=== PATIENT | male | born 1970 | race Caucasian/White ===

== ENCOUNTER 2018-01-10 11:46 | Inpatient (IN) | payer MEDICAID ==
--- NOTE | 2018-01-10 11:57 | CPEKG ---
Heart Rate: 115 RR Interval: 522 P-R Interval: 148 QRSD Interval: 100 QT Interval: 320 QTC Interval: 443 P [place]: 84 QRS [place]: 49 T Wave [place]: 251 EKG Severity - ABNORMAL ECG - EKG Impression: SINUS TACHYCARDIA EKG Impression: BORDERLINE INFERIOR Q WAVES EKG Impression: NONSPECIFIC T ABNORMALITIES, DIFFUSE LEADS Electronically Signed By: Mauri Wallace 10-Jan-2018 14:09:33
[2018-01-10] MEDS ORDERED: NS 1,000 ML IV ONE ×3 (12:09→12:19)
--- NOTE | 2018-01-10 12:09 | EDPHY ---
H & P Stated Complaint: nausea vomiting Time Seen by Provider: 01/10/18 12:08 - Personal History Current Tetanus/Diphtheria Vaccine: Yes Current Tetanus Diphtheria and Acellular Pertussis (TDAP): Yes - Medical/Surgical History Hx Asthma: No Hx Chronic Respiratory Disease: No Hx Diabetes: No Hx Cardiac Disease: No Hx Renal Disease: No Hx Cirrhosis: No Hx Alcoholism: No Hx HIV/AIDS: No Hx Splenectomy or Spleen Trauma: No Other PMH: pmh: depression, - Social History Smoking Status: Never smoked Constitutional: Initial Vital Signs Temperature (C) 36.6 C 01/10/18 12:05 Heart Rate 120 H 01/10/18 12:05 Respiratory Rate 18 01/10/18 12:05 Blood Pressure 96/68 L 01/10/18 12:05 O2 Sat (%) 97 01/10/18 12:05 O2 Delivery Mode Nasal Cannula O2 (L/minute) 2 Allergies/Adverse Reactions: No Known Allergies Allergy (Unverified 01/10/18 12:22) Home Medications: Medication Instructions Recorded Acetaminophen/ASA/Caffeine 1 each PO DAILY PRN 01/10/18 [Excedrin Tablet (*)] Ascorbic Acid [Vitamin C 500 mg 500 mg PO DAILY 01/10/18 (*)] Carboxymethylcellulose 1% [Refresh 1 drop EACHEYE BID PRN 01/10/18 Celluvisc (*)] Multivitamins [Multivitamin (*)] 2 each PO DAILY 01/10/18 Sertraline HCl [Zoloft 50mg (*)] 50 mg PO DAILY 01/10/18 Medical Decision Making ED Course/Re-evaluation: CHIEF COMPLAINT: Nausea/vomiting. HISTORY OF PRESENT ILLNESS: This patient is a 47 year old male arriving via EMS for evaluation of persistent vomiting and weakness. Tuesday evening, he has chicken [employer] for dinner. The following evening, three days ago, he began vomiting. The emesis was reddish-tinged, but this was initially attributed to the pink color of the watson from dinner the night before. Later that night, the patient fainted , but was able to get up quickly following this event. Since then, he has continued to vomit and feel weak. His at bedside states he has also had frequent episodes of dark, tarry stool. The patient states he does not feel cold , but has not been able to stop shaking. He denies fever, chest pain, or abdominal pain. He denies any history of similar symptoms before. REVIEW OF SYSTEMS: A 10 point review of systems was performed and is negative with the exception of the elements mentioned in the history of present illness. PHYSICAL EXAM: HR, BP, O2 Sat, RR. Temp noted General Appearance: Alert, pale. Head: Atraumatic without scalp tenderness or obvious injury Eyes: Pale conjunctiva. Pupils equal, round, reactive to light and accommodation , EOMI, no trauma, no injection. Ears: Clear bilaterally, no perforation, normal landmarks Nose: Atraumatic, no rhinorrhea, clear. Throat: There is no erythema or exudates, no lesions, normal tonsils, mucus membranes moist. Neck: Supple, 2+ carotid upstroke, nontender, no lymphadenopathy. Respiratory: No retractions, no distress, no wheezes, and no accessory muscle use. Lungs are clear to auscultation bilaterally. Cardiovascular: Regular rate and rhythm, no murmurs, rubs, or gallops. Bilateral carotid, radial, dorsalis pedis, and posterior tibial pulses intact. Good capillary refill all extremities. Gastrointestinal: Abdomen is soft, nontender, non-distended, no masses, no rebound, no guarding, no peritoneal signs. Musculoskeletal: Normal active ROM of all extremities, atraumatic. Neurological: Alert, appropriate, and interactive. The patient has normal DTRs and non-focal cranial nerves, motor, sensory, and cerebellar exam. Skin: Pale. Some loss of palmar creases. No rashes, good turgor, no nodules on palpation. Past medical history: Depression. Past surgical history: Noncontributory. Family history: Noncontributory. Social history: . at bedside. [place]. DIAGNOSTICS/PROCEDURES/CRITICAL CARE TIME: Critical care time spent by me, Dr. Wallace, exclusively with this patient was 30 minutes, exclusive of PA time and exclusive of procedures. The organ system at risk was cardiovalvular, GI and I gave blood products, consulted with GI, initiated TXA protocol, and transferred the patient to ICU to prevent worsening of the patients condition. DIFFERENTIAL DIAGNOSIS: The differential diagnosis for the patient's upper GI bleeding included but was not limited to ulcer disease, gastritis, Bianca-Hammond tear, and esophageal varices. MEDICAL DECISION MAKING: Healthy 47 y/o male presents with weakness and persistent vomiting. He is very pale on exam, diaphoretic, and shaking. I-stat shows Hemoglobin/Hematocrit low at 7.5/22. Patient has likely upper GI bleed. Plan for type and cross. Plan for GI consult. Plan for labs including CBC, chemistries, liver/lipase. 12:30 Paged GI. Plan to start IV Protonix drip, blood products including 2 packets of red cells, 2 FFP, and 1 platelet. Plan to administer TXA per protocol. 12:[address] Fofana, metal fabricating supervisor. He will scope the patient. Plan to administer 250mg Erythromycin IV for motility as recommended by Dr. Fofana. 13:01 Dr. Fofana accepts admission to ICU for likely upper GI bleed. - Data Points Laboratory Results: Laboratory Results 01/10/18 12:05 01/10/18 11:48 01/10/18 01/10/18 01/10/18 12:10 12:05 11:48 WBC 13.29 10^3/uL H 10^3/uL (3.80-9.50) RBC 2.15 10^6/uL L 10^6/uL (4.40-6.38) Hgb 6.8 g/dL L g/dL (13.7-17.5) Hct 19.8 % L % (40.0-51.0) MCV 92.1 fL fL (81.5-99.8) MCH 31.6 pg pg (27.9-34.1) MCHC 34.3 g/dL g/dL (32.4-36.7) RDW 12.3 % % (11.5-15.2) Plt Count 282 10^3/uL 10^3/uL (150-400) MPV 9.3 fL fL (8.7-11.7) Neut % (Auto) 88.5 % H % (39.3-74.2) Lymph % (Auto) 6.1 % L % (15.0-45.0) [place] % (Auto) 4.5 % % (4.5-13.0) Eos % (Auto) 0.0 % L % (0.6-7.6) Baso % (Auto) 0.2 % L % (0.3-1.7) Nucleat RBC Rel Count 0.2 % % (0.0-0.2) Absolute Neuts (auto) 11.77 10^3/uL H 10^3/uL (1.70-6.50) Absolute Lymphs (auto) 0.81 10^3/uL L 10^3/uL (1.00-3.00) Absolute Monos (auto) 0.60 10^3/uL 10^3/uL (0.30-0.80) Absolute Eos (auto) 0.00 10^3/uL L 10^3/uL (0.03-0.40) Absolute Basos (auto) 0.02 10^3/uL 10^3/uL (0.02-0.10) Absolute Nucleated RBC 0.03 10^3/uL H 10^3/uL (0-0.01) Immature Gran % 0.7 % % (0.0-1.1) Immature Gran # 0.09 10^3/uL 10^3/uL (0.00-0.10) Platelet Estimate INCREASED H (ADEQ) Polychromasia 1+ H Microcytic Cells 1+ H Smear Review By Pending PT 15.9 SEC H SEC (12.0-15.0) INR 1.25 H (0.83-1.16) APTT 21.9 SEC L SEC (23.0-38.0) Sodium Potassium Chloride Carbon Dioxide Anion Gap BUN Creatinine Estimated GFR Glucose Calcium Total Bilirubin Conjugated Bilirubin Unconjugated Bilirubin AST ALT Alkaline Phosphatase Total Protein Albumin Lipase Patient ABO/Rh O POSITIVE Antibody Screen NEGATIVE Crossmatch IS Only See Detail Bld Prod Verbal Order YES 01/10/18 01/10/18 11:48 11:48 WBC 13.55 10^3/uL H 10^3/uL (3.80-9.50) RBC 2.30 10^6/uL L 10^6/uL (4.40-6.38) Hgb 7.4 g/dL L g/dL (13.7-17.5) Hct 21.3 % L % (40.0-51.0) MCV 92.6 fL fL (81.5-99.8) MCH 32.2 pg pg (27.9-34.1) MCHC 34.7 g/dL g/dL (32.4-36.7) RDW 12.3 % % (11.5-15.2) Plt Count 289 10^3/uL 10^3/uL (150-400) MPV 9.3 fL fL (8.7-11.7) Neut % (Auto) 87.5 % H % (39.3-74.2) Lymph % (Auto) 7.1 % L % (15.0-45.0) [place] % (Auto) 4.8 % % (4.5-13.0) Eos % (Auto) 0.0 % L % (0.6-7.6) Baso % (Auto) 0.1 % L % (0.3-1.7) Nucleat RBC Rel Count 0.3 % H % (0.0-0.2) Absolute Neuts (auto) 11.85 10^3/uL H 10^3/uL (1.70-6.50) Absolute Lymphs (auto) 0.96 10^3/uL L 10^3/uL (1.00-3.00) Absolute Monos (auto) 0.65 10^3/uL 10^3/uL (0.30-0.80) Absolute Eos (auto) 0.00 10^3/uL L 10^3/uL (0.03-0.40) Absolute Basos (auto) 0.02 10^3/uL 10^3/uL (0.02-0.10) Absolute Nucleated RBC 0.04 10^3/uL H 10^3/uL (0-0.01) Immature Gran % 0.5 % % (0.0-1.1) Immature Gran # 0.07 10^3/uL 10^3/uL (0.00-0.10) Platelet Estimate Polychromasia Microcytic Cells Smear Review By PT INR APTT Sodium 138 mEq/L mEq/L (135-145) Potassium 3.6 mEq/L mEq/L (3.5-5.2) Chloride 103 mEq/L mEq/L (97-110) Carbon Dioxide 15 mEq/l L mEq/l (22-31) Anion Gap 20 mEq/L H mEq/L (8-16) BUN 34 mg/dL H mg/dL (7-23) Creatinine 1.0 mg/dL mg/dL (0.7-1.3) Estimated GFR > 60 Glucose 221 mg/dL H mg/dL (70-100) Calcium 8.9 mg/dL mg/dL (8.5-10.4) Total Bilirubin 0.2 mg/dL mg/dL (0.1-1.4) Conjugated Bilirubin 0.2 mg/dL mg/dL (0.0-0.5) Unconjugated Bilirubin 0.0 mg/dL mg/dL (0.0-1.1) AST 32 IU/L IU/L (17-59) ALT 45 IU/L IU/L (21-72) Alkaline Phosphatase 43 IU/L IU/L (38-126) Total Protein 5.9 g/dL L g/dL (6.3-8.2) Albumin 3.6 g/dL g/dL (3.5-5.0) Lipase 71 IU/L IU/L (23-300) Patient ABO/Rh Antibody Screen Crossmatch IS Only Bld Prod Verbal Order Medications Given: Tranexamic Acid 1,000 mg/ (Sodium Chloride) 510 mls @ 63.75 mls/hr IV ONCE ONE Stop: 01/10/18 20:31 Last Admin: 01/10/18 13:01 Dose: 510 mls Erythromycin Lactobionate 250 (mg/ Sodium Chloride) 105 mls @ 220 mls/hr IV Q6HRS MIN PRN Reason: Protocol Stop: 02/09/18 17:59 Last Admin: 01/10/18 13:25 Dose: 105 mls Discontinued Medications Sodium Chloride (Ns) 1,000 mls @ 0 mls/hr IV ONCE ONE PRN Reason: Wide Open Stop: 01/10/18 12:18 Last Admin: 01/10/18 12:00 Dose: 1,000 mls Sodium Chloride (Ns) 1,000 mls @ 0 mls/hr IV EDNOW ONE; Wide Open PRN Reason: Protocol Stop: 01/10/18 12:10 Last Admin: 01/10/18 12:15 Dose: 1,000 mls Ondansetron HCl (Zofran) 4 mg IVP EDNOW ONE Stop: 01/10/18 12:18 Last Admin: 01/10/18 12:23 Dose: 4 mg Pantoprazole Sodium (Protonix) 80 mg IVP EDNOW ONE Stop: 01/10/18 12:31 Last Admin: 01/10/18 12:56 Dose: 80 mg Promethazine HCl (Phenergan) 12.5 mg IVP ONCE ONE Stop: 01/10/18 13:07 Last Admin: 01/10/18 13:07 Dose: 12.5 mg Departure - Departure Disposition: [facility] Inpatient Acute Clinical Impression: Upper GI bleed Condition: Serious Referrals: Patient,NotPresent [Primary Care Provider] - As per Instructions Report Scribed for: Mauri Wallace Report Scribed by: Alanis Plascencia Date of Report: 01/10/18 Time of Report: 15:21
[2018-01-10] MEDS ORDERED: ONDANSETRON 4 MG/2 ML VIAL IVP ONE (12:17)
[2018-01-10 12:24] LABS: PLATELET COUNT 289 10^3/uL (150-400)
[2018-01-10] MEDS ORDERED: PANTOPRAZOLE SODIUM 40 MG VIAL IVP ONE (12:30)
[2018-01-10] MEDS ORDERED: TRANEXAMIC ACID 1,000 MG in NS 500 ML IV ONE (12:32)
[2018-01-10] MEDS ORDERED: TRANEXAMIC ACID 1,000 MG in NS 100 ML IV ONE (12:32)
[2018-01-10 12:40] LABS: INR 1.25 (0.83-1.16); PROTIME(PATIENT) 15.9 SEC (12.0-15.0)
[2018-01-10 12:41] LABS: PLATELET COUNT 282 10^3/uL (150-400)
[2018-01-10] MEDS ORDERED: PANTOPRAZOLE SODIUM 40 MG VIAL ONE (12:53)
[2018-01-10] MEDS ORDERED: PROMETHAZINE HCL 25 MG/ML INJ ONE (13:05)
[2018-01-10] MEDS ORDERED: PROMETHAZINE HCL 25 MG/ML INJ IVP ONE (13:06)
--- NOTE | 2018-01-10 13:30 | PDANEPAE ---
ANE History of Present Illness GIB ANE Past Medical History - Cardiovascular History Hx Hypertension: No Hx Arrhythmias: No Hx Chest Pain: No Hx Coronary Artery / Peripheral Vascular Disease: No Hx CHF / Valvular Disease: No Hx Palpitations: No - Pulmonary History Hx COPD: No Hx Asthma/Reactive Airway Disease: No Hx Recent Upper Respiratory Infection: No Hx Oxygen in Use at Home: No Hx Sleep Apnea: No - Endocrine History Hx Diabetes: No Hypothyroid: No Hyperthyroid: No Obesity: no - Renal History Hx Renal Disorders: No - Liver History Hx Hepatic Disorders: No - GI History Hx Gastrointestinal Disorders: Yes ANE Review of Systems Review of Systems: - Exercise capacity Exercise capacity: >=4 METS - Systems Gastrointestinal: Reports: vomitting ANE Patient History - Allergies Allergies/Adverse Reactions: No Known Allergies Allergy (Unverified 01/10/18 12:22) - Home Medications Home Medications: Acetaminophen/ASA/Caffeine [Excedrin Tablet (*)] 1 each PO DAILY PRN 01/10/18 [ Last Taken Unknown] Ascorbic Acid [Vitamin C 500 mg (*)] 500 mg PO DAILY 01/10/18 [Last Taken Unknown] Carboxymethylcellulose 1% [Refresh Celluvisc (*)] 1 drop EACHEYE BID PRN [Last Taken Unknown] Multivitamins [Multivitamin (*)] 2 each PO DAILY 01/10/18 [Last Taken Unknown] Sertraline HCl [Zoloft 50mg (*)] 50 mg PO DAILY 01/10/18 [Last Taken 3 Days Ago ~01/07/18] - NPO status NPO Status: no food or drink >8 hours - Anes Hx Anes Hx: post operative nausea, post operative nausea and vomiting - Smoking Hx Smoking Status: Never smoked - Alcohol Use Alcohol Use: Heavy (2-3/night) - Family Anes Hx Family Anes Hx: none ANE Labs/Vital Signs - Labs Result Diagrams: 01/10/18 12:05 01/10/18 11:48 - Vital Signs Vital Signs: reviewed preoperatively; see RN documention for details Blood Pressure: 128/57 Heart Rate: 102 Respiratory Rate: 18 O2 Sat (%): 98 Height: 190.5 cm Weight: 79.379 kg ANE Physical Exam - Airway Neck exam: FROM Mallampati Score: Class 2 Mouth exam: normal dental/mouth exam - Pulmonary Pulmonary: no respiratory distress - Cardiovascular Cardiovascular: regular rate and rhythym - ASA Status ASA Status: III, E ANE Anesthesia Plan Anesthesia Plan: general endotracheal anesthesia
[2018-01-10] MEDS ORDERED: fentaNYL 100 MCG/2 ML INJ ONE (13:34)
[2018-01-10] MEDS ORDERED: PROPOFOL 200 MG/20 ML VIAL ONE (13:34)
[2018-01-10] MEDS ORDERED: ROCURONIUM 50 MG/5 ML VIAL ONE (13:34)
[2018-01-10] MEDS ORDERED: LIDOCAINE 2% 5 ML SDV ONE (13:34)
[2018-01-10] MEDS ORDERED: NALOXONE HCL 0.4 MG/ML INJ IVP PRN (14:45)
[2018-01-10] MEDS ORDERED: fentaNYL 100 MCG/2 ML INJ IVP PRN (14:45)
[2018-01-10] MEDS ORDERED: ONDANSETRON 4 MG/2 ML VIAL IVP PRN (14:45)
--- NOTE | 2018-01-10 14:45 | POSTANESTH ---
Post Anesthetic Evaluation Cardiovascular Status: Similar to Pre-Op Cond Respiratory Status: Normal, Stable Level of Consciousness/Mental Status: Can Participate in Eval Pain Control: Adequate, Prn Tx Ordered Nausea/Vomiting Control: Adequate, Prn Tx Ordered Complications Possibly Related to Anesthesia: None Noted
--- NOTE | 2018-01-10 14:54 | GCON ---
[f rep st] CONSULTATION DATE OF CONSULTATION: 01/10/2018 REFERRING PHYSICIAN: Nito Bolton MD REASON FOR CONSULTATION: Upper GI bleed. CHIEF COMPLAINT: Hematemesis. HISTORY OF PRESENT ILLNESS: The patient is a 47-year-old male with history of nonsteroidal anti-inflammatory use, alcohol use, who presents to [facility] with complaints of hematemesis. The patient was in normal state of health until approximately 3 days ago after eating, when he started to have multiple episodes of hematemesis, where he was throwing up approximately 10 times a day. The patient is lethargic, thus much of history is obtained through his . He also started to develop melanotic bowel movements. He did have a syncopal episode. He denies any exacerbating or alleviating factors to his symptoms. He does take at least 2-3 Excedrin a day, but stopped several days ago. He also drinks about 2-3 alcoholic beverages a night. He denies ever being told that he has liver dysfunction. He denies any chest pain, shortness of breath, cough, dysphagia, or fevers. I am being asked by Dr. Bolton to evaluate the patient in consultation. PAST MEDICAL HISTORY: 1. Headaches. 2. Depression. PAST SURGICAL HISTORY: None. ALLERGIES: NKDA. MEDICATIONS: Zoloft. SOCIAL HISTORY: Positive alcohol. No cigarette use. FAMILY HISTORY: No history of stomach cancer. REVIEW OF SYSTEMS: A 14-point comprehensive review of systems was asked. Pertinent positives and negatives per HPI. PHYSICAL EXAM: VITAL SIGNS: Blood pressure 128/57, heart rate 107, O2 sat 98% on room air, respirations 16. GENERAL: Awake, lethargic. HEENT: Anicteric. Moist mucosa. NECK: No JVD. CARDIOVASCULAR: Tachycardic. Positive S1, S2. No murmurs appreciated. LUNGS: Clear to auscultation bilateral without wheezes, rales or rhonchi. ABDOMEN: Soft, nontender, nondistended. Positive bowel sounds. No guarding. No rebound. EXTREMITIES: No clubbing, cyanosis or edema. NEUROLOGIC: 2 through 12 grossly intact. SKIN: No rash. Nonicteric. PSYCH: Normal affect. MUSCULOSKELETAL: No obvious joint deformities. LYMPH: No lymphadenopathy. LABORATORY DATA: Blood work: WBC 13.29, hemoglobin 6.8, hematocrit 19.8, platelets 282. INR 1.25. Sodium 138, potassium 3.6, chloride 103, bicarb 15, BUN 34, creatinine 1.0, AST 32, ALT 45, alk phos 43, albumin 3.6, lipase 71. ASSESSMENT/PLAN: 1. Gastrointestinal bleed-upper. He does have significant nonsteroidal anti- inflammatory as well as alcohol use. Post hemorrhagic anemia. Etiology? Bianca Hammond tear versus peptic ulcer disease versus other? . At this time, I recommend to give a protonix infusion and monitor H and H. Will transfuse as needed, and we will need ICU care. We will also recommend to proceed with upper endoscopy to delineate the cause of symptoms and possibly control the bleeding. Will give 250mg or erythromycin x 1 to empty the stomach. The risks, benefits , and alternatives of the procedure were discussed in great detail with the patient, as well as the , who was present. Risks of infection, bleeding, perforation, and sedation were discussed. Due to his significant acute and emergent nature of this procedure due to hematemesis, there is increased risk of sedation; Will need anesthesiology support and recommend general anesthesia for airway protection. 2. History of depression. Thank you very much for this consultation. /[id number]/MODL MTDD
--- NOTE | 2018-01-10 15:42 | GIREPORT ---
[facility] Surgical Services - Endoscopy Department Patient Name: Khurram Warren Procedure Date: 01/10/2018 1:51 PM Patient Type: Emergency Department Attending MD/ ER Physician: Hector Fofana MD Procedure: Upper GI endoscopy Indications: Acute post hemorrhagic anemia, Hematemesis, Melena Patient Profile: 49 year old male presents for evaluation of hematemesis/melena. Providers: Hector Fofana MD Medicines: Monitored Anesthesia Care Complications: No immediate complications. Description of Procedure: After obtaining informed consent, the endoscope was passed under direct vision. Throughout the procedure, the patient's blood pressure, pulse, and oxygen saturations were monitored continuously. The Endoscope was intro duced through the mouth, and advanced to the second part of duodenum. The Endoscope was introduced through the mouth, and advanced to the second part of duodenum. The upper GI endoscopy was accomplished without difficulty . The patient tolerated the procedure well. Findings: The examined esophagus was normal. A medium-sized hiatal hernia was present. Three superficial gastric ulcers with no stigmata of bleeding were foun d in the gastric body and in the gastric antrum. The largest lesion was 4 mm in largest dimension. No blood was seen during the whole examination. The examined duodenum was normal. Estimated Blood Loss: Estimated blood loss: none. Post Op Diagnosis: - Normal esophagus. - Medium-sized hiatal hernia. - Gastric ulcers with no stigmata of bleeding. - NO blood seen throughout the examined stomach. - Normal examined duodenum. - No specimens collected. - Etiology? Ulcers were superficial but no other cause found. Healed ul cer versus Dielaufoys versus other? Recommend PPI infusion as well as monit or H/H. No NSAIDs. Will follow. Recommendation: - Return patient to [facility] for ongoing care. - Continue PPI infusion - Monitor H/H - NPO for now. - Thank you for allowing me to participate in the care of your patient. Attending Participation: I personally performed the entire procedure. Hector Fofana MD Hector Fofana MD 01/10/2018 3:42:06 PM This report has been signed electronicallyHector Fofana MD Number of Addenda: 0 Note Initiated On: 01/10/2018 1:51 PM [email or web address]
--- NOTE | 2018-01-10 15:53 | ASMTCMCOM ---
CM Note CM Note Notes: Patient admitted after having N/V and UGIB. He ahs a Hx of Headaches-daily use of Excedrin, Depression. Patient had an endoscopy today. Patient lives with his . CM not anticipating that patient will have any discharge needs. Date Signed: 01/10/2018 03:52 PM Electronically Signed By:Cherelle Scruggs LCSW
[2018-01-10] MEDS: D5W LR 1,000 ML IV SCH (16:33)
[2018-01-10] MEDS: PANTOPRAZOLE SODIUM 40 MG VIAL IVP SCH ×2 (17:58→22:03)
[2018-01-10] MEDS ORDERED: ERYTHROMYCIN LACTOBIONATE 250 MG in NS 100 ML IV SCH (18:00)
[2018-01-10] MEDS ORDERED: PROMETHAZINE HCL 25 MG/ML INJ IVP PRN (19:55)
[2018-01-10] MEDS ORDERED: NS W/ 20 KCl/L 1,000 ML IV SCH (20:00)
[2018-01-10] MEDS ORDERED: LORazepam 2 MG/ML INJ IVP PRN (20:03)
[2018-01-10 20:52] LABS: PLATELET COUNT 172 10^3/uL (150-400)
--- NOTE | 2018-01-10 21:16 | GHP ---
[f rep st] HISTORY AND PHYSICAL DATE OF ADMISSION: 01/10/2018 CHIEF COMPLAINT: Coffee-ground emesis and melena. HISTORY OF PRESENT ILLNESS: The patient is a pleasant 47-year-old gentleman with a past medical hist ory of depression, who had been feeling ill for the past 3-4 days, with complaints of nausea with stalin k-appearing emesis, and this morning developing significant amount of melena. EMS was called to his house. He actually developed episodes of loss of consciousness this morning and also when EMS was tr anu to get him up onto a gurney. When he got to the hospital, his initial hemoglobin was 7.4. This on repeat dropped to 6.8, and he was given 2 units of blood, which did improve the hemoglobin to 8.[address] Fofana with Gastroenterology was consulted, and took the patient for endoscopy. On endoscopy, t here were 3 ulcers noted within the stomach, but none of which appeared to be bleeding. Esophagus wa s documented as normal. No tears were noted. He has taken Excedrin, which has aspirin in it, for pa in relief, but he has not taken anything over the past 2-3 days. He does not have any history of any regular NSAID use. No history of any liver problems. He has 1 or 2 beers in the evening time. PAST MEDICAL HISTORY: Depression. PAST SURGICAL HISTORY: None. MEDICATIONS: Sertraline 50 mg daily. ALLERGIES: No known drug allergies. FAMILY HISTORY: Mother at the age of 51 secondary to breast cancer. Dad at 61 from a myoc ardial infarction. SOCIAL HISTORY: The patient is currently . He has 2 children. He does not smoke. He has 1- 2 beers daily. No regular NSAID use. The patient is a full code status. REVIEW OF SYSTEMS: CONSTITUTIONAL: Positive for chills. ENT: No recent upper respiratory-like ill nesses. CARDIOVASCULAR: No complaints of chest pains or palpitations. Positive for syncopal episod es earlier today. RESPIRATORY: No complaints of cough or shortness of breath. GI: No focal abdomi nal pains. Positive, though, for nausea with dark emesis and melena. : No report of any difficul ty with urination. NEUROLOGIC: No complaints of headaches or focal weakness. HEMATOLOGIC: No hist ory of any deep vein thrombosis or pulmonary embolism. No bleeding disorders. PSYCHIATRIC: No hist ory of anxiety. Positive for depression. ENDOCRINE: No history of diabetes or thyroid abnormality. SKIN: No new skin rashes. MUSCULOSKELETAL: No focal joint pains. PHYSICAL EXAMINATION: VITAL SIGNS: Temperature 36.9, blood pressure 126/80, heart rate 76, respirat ions 14, saturating 94% on room air. GENERAL: Patient is seen after his endoscopy today, awake, mehdi rt, conversant, in no acute distress. He does not appear pale, as noted previously in the ER. HEENT : Extraocular movements appear intact. No scleral icterus is noted. Mucous membranes dry. NECK: Supple. No thyroid enlargement noted. CHEST: Clear on auscultation with normal respiratory effort. HEART: Regular rate and rhythm. No murmurs. ABDOMEN: Soft, nontender, nondistended. : No Fo deana catheter in place. EXTREMITIES: No significant pitting edema. NEUROLOGIC: Cranial nerves 2-12 are intact, and strength 5/5 in extremities. LABS: White blood cell count is 13. Hemoglobin most recently is at 8.6. That is after receiving 2 units of blood for a hemoglobin of 6.8. Platelets 282. Sodium 138, potassium 3.6, chloride 103, bic arb 15, BUN 34, creatinine 1.0, glucose 221. INR 1.2, PTT is 21. AST 32, ALT 45, alkaline phosphata se 43, bilirubin is 0.2, lipase 71. ASSESSMENT AND PLAN: 1. Upper gastrointestinal bleed, presumably secondary to gastric ulcers that were seen. However, th ey were not actively bleeding at the time of evaluation, but clinically probably have been bleeding o chino the past several days. Uncertain etiology. He has had some NSAIDs, but it does not sound like a nything too excessive. We will check stool for H pylori. Await biopsy results from endoscopy. Cont inue with proton pump inhibitor IV q.6 hours as already ordered, and trend H and H every 8 hours. 2. Fever. This evening patient did spike a fever to 101. I have ordered blood cultures, chest x-ra y, and urinalysis, as well as a nasal swab for influenza. He has been having chills, he says over th e past day or 2. Consider ordering a GI PCR panel with diarrhea. 3. Elevated glucose, possibly a stress reaction, but it was 221. We will check an A1c with morning labs. 4. Elevated INR. Patient does not have a history of any known bleeding disorders or liver disease. We will repeat bleeding times in the morning for reassessment. 5. DVT prophylaxis: Compression devices. 6. Disposition. I will admit him under inpatient status. I anticipate he will be here for over 2 m idnights, probably 3-5 days. /[id number]/MODL
[2018-01-11] MEDS: PANTOPRAZOLE SODIUM 40 MG VIAL IVP SCH ×2 (03:44→10:38)
[2018-01-11 04:26] LABS: INR 1.32 (0.83-1.16); PROTIME(PATIENT) 16.6 SEC (12.0-15.0)
[2018-01-11 04:32] LABS: PLATELET COUNT 180 10^3/uL (150-400)
--- NOTE | 2018-01-11 07:39 | SOAPPROG ---
[facility] Progress Note Assessment/Plan: Assessment: Plan: 01/11/18 07:32 A/P 1. GI bleed- upper. S/p EGD with gastric ulcer. However, no stigmata of recent bleed which would expect. No blood seen during examination. Etiology? Healed gastric ulcer versus MW tear versus Dieulafoys versus other? No clinical evidence of active GI bleed. Recommend PPI therapy. Ok to start diet. Would decrease H/H checks etc. Will consider capsule endoscopy as outpatient? Will need H. pylori on blood work. No NSAIDs. Subjective: cc: Follow up GI bleed No recent BM or vomiting. Feeling better. Objective: Vital Signs Temp Pulse Resp BP Pulse Ox 36.9 C 71 14 109/58 L 95 01/11/18 07:22 01/11/18 07:22 01/11/18 07:22 01/11/18 07:22 01/11/18 03:35 Laboratory Results 01/11/18 03:08 01/11/18 03:08 01/10/18 01/11/18 01/12/18 05:59 05:59 05:59 Intake Total 5725 Output Total 500 Balance 5225 PT 16.6 SEC (12.0-15.0) H 01/11/18 03:08 INR 1.32 (0.83-1.16) H 01/11/18 03:08 Physical Exam - Physical Exam General Appearance: alert, no apparent distress EENT: No scleral icterus (R), No scleral icterus (L) Respiratory: normal breath sounds, No rales, No rhonchi, No stridor Cardiac/Chest: normal peripheral pulses, regular rate, rhythm Abdomen: normal bowel sounds, non-tender, soft, No guarding, No rebound Skin: normal color, warm/dry Neuro/Psych: no motor/sensory deficits, alert, oriented x 3 ICD10 Worksheet Patient Problems: Problems Problem Status Onset Upper GI bleed Acute
--- NOTE | 2018-01-11 08:35 | PDMN ---
Medical Necessity Medical necessity: est los>2mn for UGIB, presumed r/t gastric ulcers, fever w/T 101, elevated glucose and elevated INR; admit s/p endoscopy for IV PPI, serial h &h; follow INR, A1C, blood cx; per order and H&P 01/10/18
[2018-01-11] MEDS: SERTRALINE HCL 50 MG TAB PO SCH (08:56)
[2018-01-11] MEDS: ACETAMINOPHEN 325 MG TAB PO PRN (10:26)
[2018-01-11] MEDS: D5W LR 1,000 ML IV SCH (10:38)
--- NOTE | 2018-01-11 16:00 | HOSPPROG ---
Hospitalist Progress Note Assessment/Plan: # acute upper GI bleed- patient presented with significant blood loss and loss of consciousness secondary to bleed- EGD on admission showed ulcerations without stigmata of active bleeding- pt using NSAIDs in the outpatient setting as well Patient with preceding vomiting illness that make a Bianca-Hammond tears possible as well Telemetry(personally reviewed and interpreted) sinus rhythm heart rates in the 80s - advance diet per Gastroenterology - recheck CBC this afternoon - continue twice daily PPI - increase activity with PT OT evaluation - gastroenterology following # acute blood loss anemia hemoglobin 6.8 at presentation-patient is status post blood transfusion overnight Remains hemodynamically stable today- oxygen saturations 94% on RA - recheck counts in a.m. # prophylaxis contraindicated in setting of acute GI bleed # diet clears advance per Gastroenterology # disposition- patient will need to remain this evening for continued monitoring expect disposition tomorrow if remains stable I have discussed the case with the RN-we will not continue q6 H&H monitoring as the patient's clinical status is stabilized Subjective: Less dizzy Objective: Vital Signs Temp Pulse Resp BP Pulse Ox 36.9 C 69 16 111/65 97 01/11/18 15:30 01/11/18 15:30 01/11/18 15:30 01/11/18 15:30 01/11/18 15:30 Laboratory Results 01/11/18 03:08 01/11/18 03:08 01/10/18 01/11/18 01/12/18 05:59 05:59 05:59 Intake Total 5725 241 Output Total 500 Balance 5225 241 PT 16.6 SEC (12.0-15.0) H 01/11/18 03:08 INR 1.32 (0.83-1.16) H 01/11/18 03:08 - Physical Exam Constitutional: no apparent distress Eyes: anicteric sclera Ears, Nose, Mouth, Throat: moist mucous membranes Cardiovascular: regular rate and rhythym Respiratory: no respiratory distress Gastrointestinal: normoactive bowel sounds Genitourinary: no bladder fullness Skin: warm Musculoskeletal: No asymmetric calves Neurologic: AAOx3 Psychiatric: interacting appropriately Lymph, Heme, Immunologic: no cervical LAD ICD10 Worksheet Patient Problems: Problems Problem Status Onset Upper GI bleed Acute
[2018-01-11 20:42] LABS: PLATELET COUNT 190 10^3/uL (150-400)
[2018-01-11] MEDS: PANTOPRAZOLE SODIUM 40 MG TAB PO SCH (20:52)
[2018-01-11] MEDS ORDERED: traZODone 50 MG TAB PO SCH (21:00)
[2018-01-12] MEDS: ACETAMINOPHEN 325 MG TAB PO PRN (05:57)
--- NOTE | 2018-01-12 06:39 | SOAPPROG ---
[facility] Progress Note Assessment/Plan: Assessment: Plan: 01/11/18 07:32 A/P 1. GI bleed- upper. S/p EGD with gastric ulcer. However, no stigmata of recent bleed which would expect. No blood seen during examination. Etiology? Healed gastric ulcer versus MW tear versus Dieulafoys versus other? No clinical evidence of active GI bleed. Recommend PPI therapy. Ok to start diet. Would decrease H/H checks etc. Will consider capsule endoscopy as outpatient? Will need H. pylori on blood work. No NSAIDs. 01/12/18 06:36 A/P 1. GI bleed- upper. S/p EGD with clean based superficial gastric ulcers. On NSAIDs. Bleed secondary to gastric ulcer versus other? No clinical evidence of GI bleed with no recent BM. Tolerating diet. From GI perspective, ok to discharge home today. PPI BID x 6 weeks than QD. Follow up in office in 2 weeks. No NSAIDs. GI will sign off. Thank you for the consultation! Subjective: cc: Follow up GI bleed No complaints. No recent BM Objective: Vital Signs Temp Pulse Resp BP Pulse Ox 36.6 C 58 L 13 107/61 95 01/12/18 04:00 01/12/18 04:00 01/12/18 04:00 01/12/18 04:00 01/12/18 04:00 Laboratory Results 01/11/18 20:25 01/12/18 03:04 01/11/18 01/12/18 01/13/18 05:59 05:59 05:59 Intake Total 5725 2091 Output Total 500 1230 Balance 5225 861 PT 16.6 SEC (12.0-15.0) H 01/11/18 03:08 INR 1.32 (0.83-1.16) H 01/11/18 03:08 Physical Exam - Physical Exam General Appearance: alert, no apparent distress EENT: No scleral icterus (R), No scleral icterus (L) Respiratory: lungs clear, normal breath sounds, No crackles, No rales, No rhonchi, No stridor Cardiac/Chest: regular rate, rhythm, No bradycardia, No tachycardia, No diastolic murmur, No systolic murmur Abdomen: non-tender, soft, No distended, No guarding Skin: normal color, warm/dry Neuro/Psych: normal mood/affect, oriented x 3 ICD10 Worksheet Patient Problems: Problems Problem Status Onset Upper GI bleed Acute
[2018-01-12] MEDS: SERTRALINE HCL 50 MG TAB PO SCH (09:53)
[2018-01-12] MEDS: PANTOPRAZOLE SODIUM 40 MG TAB PO SCH (09:53)
[2018-01-12 11:25] VITALS: RESP 16; TEMP 98; O2SAT 98
[2018-01-12] MEDS: GABAPENTIN 300 MG CAP PO SCH ×2 (11:34→15:03)
--- NOTE | 2018-01-12 16:04 | GDS ---
[f rep st] DISCHARGE SUMMARY DISCHARGE DIAGNOSES: Include: 1. Acute upper gastrointestinal bleed presumed secondary to ulceration. 2. Acute blood loss anemia secondary to gastrointestinal bleed. 3. Chronic headaches. 4. Depression. HISTORY OF PRESENT ILLNESS: A 47-year-old male who presents with coffee-ground emesis, melena, and n ear syncope. For details of patient's initial presentation, please see the history and physical date d 01/10/2018. CONSULTATIVE SERVICES: Include Gastroenterology. PROCEDURE: On 01/10/2018, patient underwent EGD that showed gastric ulcer without stigmata of acute bleeding. HOSPITAL COURSE: By issue: 1. Acute upper gastrointestinal bleed. Patient presented with a hemoglobin of 6, history of coffee- ground emesis and melena. Presumed source is a gastric ulceration appreciated on EGD. Patient had b een taking large amounts of anti-inflammatories for chronic headaches. This is thought to be the cul prit barrier breaker. Patient was initiated on b.i.d. PPI, fluid resuscitated, received blood transf usion, is stable on the day of disposition without additional bleeding. Patient will follow in the o utpatient setting with Dr. Fofana near the completion of his 6 weeks of b.i.d. PPI. He has been instru cted to stay way from anti-inflammatories. 2. Chronic headaches. This is the provoking event of his need for anti-inflammatories which we assu me were the cause for his gastric ulceration. I discussed the case with Dr. Dominguez from Neurology. He recommended initiating gabapentin 300 mg p.o. t.i.d. as an [id number] regimen for chronic headache. Patient is to follow with Neurology in the next 2-3 weeks after consistent usage o f gabapentin for his first outpatient evaluation of chronic headaches. 3. Acute blood loss anemia. Patient presented with a hemoglobin of 6.8, received blood transfusion, aggressive fluid resuscitation. Did not have additional hematemesis during his hospital stay and scott d no stigmata of acute bleeding on EGD. Patient has been initiated on a proton pump inhibitor as abo ve and will follow in the outpatient setting. MEDICATIONS: At the time of disposition, please reference the med rec printed on 01/12/2018. Thomas chen has been instructed to stay way from anti-inflammatories, has been started on both pantoprazole and gabapentin. PENDING STUDIES: At the time of this dictation include blood cultures drawn 01/10/2018, which are pr eliminary no growth to date. FOLLOWUP APPOINTMENTS: 1. Dr. Dominguez in 2-3 weeks for his first chronic headache followup. 2. Dr. Fofana in the next 5-6 weeks for post-disposition followup of his acute GI bleed. 3. His primary care provider for ongoing monitoring of his anemia. I spent greater than 30 minutes in the planning and coordination of this discharge. /[id number]/MODL
[2018-01-12 17:03] VITALS: BP 119/56; PULSE 67
== END 2018-01-12 17:04 | disposition home or self-care (01) | DRG 378 ==
LOC: EDUNIT# → FSGY 13:00 → F2N 15:19 → F2W 21:09
PROVIDERS: ADMIT Internal Medicine; ATTEND Hospitalist
PROC: 30233N1 Transfusion of Nonautologous Red Blood Cells into Peripheral Vein, Percutaneous Approach (ICD-10-PCS; 2018-01-10)
PROC: 0DJ08ZZ Inspection of Upper Intestinal Tract, Via Natural or Artificial Opening Endoscopic (ICD-10-PCS; principal; 2018-01-10 14:45)
DX: K25.4 Chronic or unspecified gastric ulcer with hemorrhage (principal); K44.9 Diaphragmatic hernia without obstruction or gangrene; D62 Acute posthemorrhagic anemia; R51 Headache
CPT/HCPCS: 87338-90; J0171; J1364; J2060; J2270; J2405; J2550; J2704; J3010; P9016; P9017; P9035

== ENCOUNTER 2018-01-13 17:22 | Emergency (ER) | payer MEDICAID ==
--- NOTE | 2018-01-13 17:29 | EDPHY ---
HPI/HX/ROS/PE/MDM Narrative: CHIEF COMPLAINT: Near-syncope, weakness HPI: The patient is a 47 y/o male arriving emergently via EMS with near-syncope this afternoon. He was admitted 01/10/18, 3 days ago, for syncope and anemia secondary to GI bleeding. He had 3 non-bleeding gastric ulcers on endoscopy during that admission. These were attributed to heavy NSAID use for his chronic headaches. He received blood transfusions while here and was discharged home on PPI and gabapentin for his headaches to replace the NSAIDs. He developed a severe headache last night and this morning while sitting at his computer he felt globally weak. He laid his head on his desk and was not answering questions from his . She described him as pale, clammy, and cold and called EMS. It does not sound like the patient completely lost consciousness and he did not fall or suffer any trauma. He is answering questions appropriately upon arrival here. He denies any hematemesis or blood in his stool over the last 24 hours. No fever, abdominal pain, vomiting, diarrhea, dyspnea, or chest pain. He is not on any anticoagulants. REVIEW OF SYSTEMS: Aside from elements discussed in the HPI, a comprehensive 10-point review of systems was reviewed and is negative. PMH: Chronic headaches, anemia secondary to GI bleed, gastric ulcers, depression SOCIAL HISTORY: . PHYSICAL EXAM: General:Patient is alert, in no acute distress. ENT:Eyes are normal to inspection. ENT inspection normal. Neck: Normal inspection. Full range of motion. Respiratory:No respiratory distress. Breath sounds normal bilaterally. Chest: Maculopapular rash Cardiovascular: Regular rate and rhythm. Strong peripheral pulses. Normal cap refill. Abdomen:The abdomen is nontender to palpation. There are no peritoneal signs. Back: Maculopapular rash on back. No tenderness to palpation. Skin: Normal color. No rash. Warm and dry. Extremities: Normal appearance. Full range of motion. Neuro: Oriented x3. Normal motor function. Normal sensory function. ED Course: This is a 47 y/o male with chronic headaches who was recently admitted for syncope and anemia secondary to GI bleeding who returns complaining of global weakness and near-syncopal symptoms this afternoon. He is alert & oriented with a nonfocal neuro exam on arrival here, though by EMS report patient was altered on scene and en route to the ED. He does have a maculopapular rash on his trunk and complains of a headache. Plan for IV, labs, EKG, head CT, and IV fluids. 2L IV NS ordered. The 12 lead EKG was interpreted by myself. See hard copy and/or "tracemaster" electronic copy for interpretation. Head CT: negative. 1812: Reassessed patient and discussed work up thus far. He is feeling much better, but still has a headache. Hgb is 9.6. 10mg IV Reglan and 25mg IV Benadryl ordered for headache. Patient is feeling improved and ready to go home. He will be discharged with standard anemia and headache care and follow up instructions. I've advised him to discontinue the Gabapentin. Return precautions discussed. He is comfortable with this plan. MDM: This patient presents with altered mental status in setting of recent discharge from the hospital after GI bleed requiring transfusion. On arrival, patient appeared extremely anxious and disoriented, but without focal deficit. He remained hemodynamically stable over his entire multiple hour stay in the ED, and his Hct is improved vs. yesterday, so I do not think this represents recurrent bleed. Patient describes recent brown non-bloody stool earlier today. CTH is negative. Labs are normal and show no sign of hemolysis to suggest delayed transfusion reaction. Patient now completely asymptomatic and wants to go home. Given negative workup, I suspect this may be related to his recent trial of gabapentin, and I have encouraged him to stop this medication. I see no sign of seizure, CVA, intracranial bleed, sepsis, acute bleed. - Data Points Imaging Results: Imaging Impressions Head CT 01/13/18 17:31 Impression: Head CT within normal limits. Results called to Dr. Chang at 6:00 PM General information for patients regarding this examination can be found at [email or web address]. If you have questions or comments about this report, please contact me at [phone] (hospital) or [phone] (cell). Imaging: Discussed imaging studies w/ yardage caller Radiologist, I viewed and interpreted images myself Laboratory Results: Laboratory Results 01/13/18 17:33 01/13/18 17:33 01/13/18 01/13/18 01/13/18 17:41 17:33 17:33 WBC RBC Hgb POC Hgb Hct POC Hct MCV MCH MCHC RDW Plt Count MPV Neut % (Auto) Lymph % (Auto) Mchenry % (Auto) Eos % (Auto) Baso % (Auto) Nucleat RBC Rel Count Absolute Neuts (auto) Absolute Lymphs (auto) Absolute Monos (auto) Absolute Eos (auto) Absolute Basos (auto) Absolute Nucleated RBC Immature Gran % Immature Gran # PT 12.9 SEC SEC (12.0-15.0) INR 0.95 (0.83-1.16) APTT 26.6 SEC SEC (23.0-38.0) POC Sodium Sodium 141 mEq/L mEq/L (135-145) POC Potassium Potassium 4.3 mEq/L mEq/L (3.5-5.2) POC Chloride Chloride 104 mEq/L mEq/L (97-110) Carbon Dioxide 26 mEq/l mEq/l (22-31) Anion Gap 11 mEq/L mEq/L (8-16) POC BUN BUN 10 mg/dL mg/dL (7-23) Creatinine 0.8 mg/dL mg/dL (0.7-1.3) POC Creatinine Estimated GFR > 60 Glucose 94 mg/dL mg/dL (70-100) POC Glucose Calcium 9.7 mg/dL D mg/dL (8.5-10.4) Total Bilirubin 0.3 mg/dL mg/dL (0.1-1.4) Conjugated Bilirubin 0.2 mg/dL mg/dL (0.0-0.5) Unconjugated Bilirubin 0.1 mg/dL mg/dL (0.0-1.1) AST 26 IU/L IU/L (17-59) ALT 50 IU/L IU/L (21-72) Alkaline Phosphatase 70 IU/L IU/L (38-126) Total Protein 6.7 g/dL g/dL (6.3-8.2) Albumin 4.0 g/dL g/dL (3.5-5.0) Patient ABO/Rh O POSITIVE Antibody Screen NEGATIVE 01/13/18 01/13/18 17:33 17:32 WBC 7.38 10^3/uL 10^3/uL (3.80-9.50) RBC 3.06 10^6/uL L 10^6/uL (4.40-6.38) Hgb 9.6 g/dL L g/dL (13.7-17.5) POC Hgb 10.5 gm/dL L gm/dL (13.7-17.5) Hct 28.1 % L D % (40.0-51.0) POC Hct 31 % L % (40-51) MCV 91.8 fL fL (81.5-99.8) MCH 31.4 pg pg (27.9-34.1) MCHC 34.2 g/dL g/dL (32.4-36.7) RDW 17.7 % H % (11.5-15.2) Plt Count 322 10^3/uL D 10^3/uL (150-400) MPV 9.0 fL fL (8.7-11.7) Neut % (Auto) 62.9 % % (39.3-74.2) Lymph % (Auto) 24.9 % % (15.0-45.0) Mchenry % (Auto) 9.8 % % (4.5-13.0) Eos % (Auto) 1.4 % % (0.6-7.6) Baso % (Auto) 0.3 % % (0.3-1.7) Nucleat RBC Rel Count 0.3 % H % (0.0-0.2) Absolute Neuts (auto) 4.65 10^3/uL 10^3/uL (1.70-6.50) Absolute Lymphs (auto) 1.84 10^3/uL 10^3/uL (1.00-3.00) Absolute Monos (auto) 0.72 10^3/uL 10^3/uL (0.30-0.80) Absolute Eos (auto) 0.10 10^3/uL 10^3/uL (0.03-0.40) Absolute Basos (auto) 0.02 10^3/uL 10^3/uL (0.02-0.10) Absolute Nucleated RBC 0.02 10^3/uL H 10^3/uL (0-0.01) Immature Gran % 0.7 % % (0.0-1.1) Immature Gran # 0.05 10^3/uL 10^3/uL (0.00-0.10) PT INR APTT POC Sodium 142 mEq/L mEq/L (135-145) Sodium POC Potassium 3.8 mEq/L mEq/L (3.3-5.0) Potassium POC Chloride 103 mEq/L mEq/L (97-110) Chloride Carbon Dioxide Anion Gap POC BUN 9 mg/dL mg/dL (7-23) BUN Creatinine POC Creatinine 0.8 mg/dL mg/dL (0.7-1.3) Estimated GFR Glucose POC Glucose 98 mg/dL mg/dL (70-100) Calcium Total Bilirubin Conjugated Bilirubin Unconjugated Bilirubin AST ALT Alkaline Phosphatase Total Protein Albumin Patient ABO/Rh Antibody Screen Medications Given: Discontinued Medications Diphenhydramine HCl (Benadryl Injection) 25 mg IVP EDNOW ONE Stop: 01/13/18 18:15 Last Admin: 01/13/18 18:42 Dose: 25 mg Sodium Chloride (Ns) 1,000 mls @ 0 mls/hr IV ONCE ONE PRN Reason: Wide Open Stop: 01/13/18 17:31 Last Admin: 01/13/18 17:31 Dose: 1,000 mls Sodium Chloride (Ns) 1,000 mls @ 0 mls/hr IV EDNOW ONE; Wide Open PRN Reason: Protocol Stop: 01/13/18 17:31 Last Admin: 01/13/18 17:39 Dose: Not Given Metoclopramide HCl (Reglan Injection) 10 mg IVP EDNOW ONE Stop: 01/13/18 18:15 Last Admin: 01/13/18 18:42 Dose: 10 mg Point of Care Test Results: 01/13/18 17:32 POC Sodium 142 POC Potassium 3.8 POC Chloride 103 POC BUN 9 POC Creatinine 0.8 POC Glucose 98 General Time Seen by Provider: 01/13/18 17:33 Initial Vital Signs: Initial Vital Signs Temperature (C) 36.7 C 01/13/18 17:22 Heart Rate 88 01/13/18 17:22 Respiratory Rate 12 01/13/18 17:22 Blood Pressure 142/77 H 01/13/18 17:22 O2 Sat (%) 99 01/13/18 17:22 O2 Delivery Mode Room Air Allergies/Adverse Reactions: No Known Allergies Allergy (Unverified 01/10/18 12:22) Home Medications: Medication Instructions Recorded Ascorbic Acid [Vitamin C 500 mg 500 mg PO DAILY 01/10/18 (*)] Carboxymethylcellulose 1% [Refresh 1 drop EACHEYE BID PRN 01/10/18 Celluvisc (*)] Multivitamins [Multivitamin (*)] 2 each PO DAILY 01/10/18 Sertraline HCl [Zoloft 50mg (*)] 50 mg PO DAILY 01/10/18 Gabapentin [Neurontin 300 MG (*)] 300 mg PO TID #90 cap 01/12/18 Pantoprazole Sodium [Protonix 40mg 40 mg PO BID #120 tab 01/12/18 (*)] Departure - Departure Disposition: Home, Routine, Self-Care Clinical Impression: Weakness, Anemia, Headache Condition: Good Instructions: Acute Headache (ED), Weakness (ED), Anemia (ED) Additional Instructions: Discontinue the gabapentin. Follow up with your specialists as planned. Return to the ED for worsening of condition. Referrals: Patient,NotPresent [Primary Care Provider] - As per Instructions Eliazar Dominguez DO [Doctor of Osteopathy] - As per Instructions Report Scribed for: Guevara Chang Report Scribed by: Jovana Hernandez Date of Report: 01/13/18 Time of Report: 18:01 Physician Review and Approval Statement: Portions of this note were transcribed by an ED scribe. I personally performed the history, physical exam, and medical decision making; and confirm the accuracy of the information in the transcribed note.
[2018-01-13] MEDS ORDERED: NS 1,000 ML IV ONE ×2 (17:30)
--- NOTE | 2018-01-13 17:41 | CPEKG ---
Heart Rate: 86 RR Interval: 698 P-R Interval: 132 QRSD Interval: 96 QT Interval: 376 QTC Interval: 450 P Benton: 44 QRS Benton: 3 T Wave Benton: 8 EKG Severity - ABNORMAL ECG - EKG Impression: SINUS RHYTHM Electronically Signed By: Fletcher Oliver 18-Jan-2018 08:53:15
[2018-01-13 17:48] LABS: PLATELET COUNT 322 10^3/uL (150-400)
[2018-01-13 17:57] LABS: INR 0.95 (0.83-1.16); PROTIME(PATIENT) 12.9 SEC (12.0-15.0)
[2018-01-13] MEDS ORDERED: METOCLOPRAMIDE 10 MG/2 ML VIAL IVP ONE (18:14)
[2018-01-13 18:38] VITALS: TEMP 97.9
[2018-01-13 21:57] VITALS: BP 107/62; PULSE 96; RESP 14; O2SAT 96
== END 2018-01-13 21:56 | disposition home or self-care (01) ==
LOC: EDUNIT#
DX: D64.9 Anemia, unspecified (principal)
CPT/HCPCS: 82947-QW; 96374; J1200; J2765